=== PATIENT | female | born 1995 | race Caucasian/White ===

== ENCOUNTER 2025-03-23 20:39 | Emergency (ER) | payer SELFPAY ==
[2025-03-23 20:50] VITALS: BP 130/70; BP 160/110; PULSE 73; PULSE 81; RESP 16; TEMP 36.4; O2SAT 100; O2SAT 97; BMI 31.1
[2025-03-23 20:55] VITALS: BP 130/70; PULSE 81; RESP 16; TEMP 36.4; O2SAT 100
--- OUTSIDE RECORDS SUMMARY | 2025-03-23 21:10 | XMS_ITS | Clinical Summary ---
Author Organization [facility] Address [address] [place] [id number] Care Team Providers [employer] Supervisor Name Role Phone Pcp, No Primary Care Provider Unavailabl e Allergies No known active allergies Medications albuterol (Ventolin HFA) 108 (90 Base) MCG/ACT inhaler Inhale 2 puffs every 6 (six) hours if needed for wheezing. 18 g 02/01/2023 Active Social History Tobacco Use Types Packs/Day Years Used Date Smoking Tobacco: Never Assessed [facility] Housing Answer Date Recorded Living Situation Not on file 06/08/2023 Housing Problems Not on file 06/08/2023 [facility] Safety Answer Date Recorded Threatened Not on file 06/08/2023 Insulted Not on file 06/08/2023 Physically Hurt Not on file 06/08/2023 Scream Not on file 06/08/2023 Comments Unknown Sex and Gender Information Value Date Recorded Sex Assigned at Not on file Legal Sex Female 1:04 AM EDT Gender Identity Not on file Sexual Orientation Not on file Last Filed Vital Signs Vital Sign Reading Time Taken Comments Blood Pressure 103/68 02/01/2023 5:00 AM EDT Pulse 112 02/01/2023 5:00 AM EDT Temperature 36.8 ??C (98.3 ??F) 02/01/2023 1:00 AM ED T Respiratory Rate 25 02/01/2023 5:00 AM EDT Oxygen Saturation 100% 02/01/2023 5:00 AM EDT Inhaled Oxygen Concentration - - Weight 90.7 kg (200 lb) 02/01/2023 1:00 AM EDT Height 162.6 cm (5' 4 ) 02/01/2023 1:00 AM EDT Body Mass Index 34.33 02/01/2023 1:00 AM EDT Plan of Treatment Health Maintenance Due Date Last Done Comments Diabetes: Hemoglobin A1C 1996 HIV Screening 1996 Lipid Panel 1996 MMR Vaccines (1 of 1 - Stand jose series) 01/13/1997 Annual Physical 07/16/1998 Diabetes: Foot Exam 01/13/2006 Diabetes: Retinopathy Screening 01/13/2006 Varicella Vaccines (1 of 2 - 13+ 2-dose series) 01/13/2009 DTaP/Tdap/Td Vaccines (1 - Tdap) 01/13/2015 Diabetes: Urine Protein Screening 01/13/2015 Hepatitis B Vaccines (1 of 3 - 19+ 3-dose series) 01/13/2015 Pneumococcal: Pediatrics (0 to 5 Yrs) and At-Risk Patients (6 to 49 Years) (1 of 2 - PCV) 01/13/2015 Pap Smear 01/13/2017 COVID-19 Vaccine (1 - 2023-2 5 season) 2024 Influenza Vaccine (Season Ended) 2025 Zoster Vaccines (1 of 2) 01/13/2046 Respiratory Syncytial Virus (RSV) 60 years and older and/or patients (1 - 1-dose 75+ series) 01/13/2071 HPV Vaccines Aged Out No longer eligi ble based on patient's age to complete this topic Hepatitis A Vaccines Aged Out No long er eligible based on patient's age to complete this topic Meningococcal B Vaccine Aged Out No l onger eligible based on patient's age to complete this topic Meningococcal Vaccine Aged Out No chrissy abdirahman eligible based on patient's age to complete this topic Respiratory Syncytial Virus (RSV) <20 months Aged Out No longer eligible b ased on patient's age to complete this topic Insurance [facility] MEDICAID [employer] Supervisor Relationship Specialty Start Date End Date Pcp, No PCP - General 02/01/23
--- NOTE | 2025-03-23 21:27 | ECG_ITS ---
Test Reason : NEAR SYNCOPE Blood Pressure : */* mmHG Vent. Rate : 78 BPM Atrial Rate : 78 BPM P-R Int : 162 ms QRS Dur : 84 ms QT Int : 382 ms P-R-T Axes : 58 50 27 degrees QTcB Int : 435 ms Normal sinus rhythm Normal ECG No previous ECGs available Referred By: Franklin Holland Electronically Signed By: MARANDA BYRD
[2025-03-23] MEDS: 0.9 % Sodium Chloride 1,000 ML 999 ML IV (21:40)
[2025-03-23] MEDS: ondansetron HCL 4 MG/2 ML VIAL IVPUSH (21:43)
[2025-03-23 21:44] LABS: MANUAL DIFF FLAG NO
[2025-03-23 21:45] LABS: Basophils Absolute Auto 0.1 X10*3/uL (0.0-0.2); Basophils Percent Auto 0.5 % (0-2); Eosinophils Absolute Auto 0.1 X10*3/uL (0.0-0.4); Eosinophils Percent Auto 0.4 % (0-4); Hematocrit 37.6 % (37.0-47.0); Hemoglobin 11.9 g/dl (12.0-16.0); Imm Gran Abs Auto 0.06 X10*3/uL (0.00-0.03); Imm Gran Pct Auto 0.5 % (0.0-0.4); Lymphocytes Absolute Auto 2.3 X10*3/uL (1.2-4.9); Lymphocytes Percent Auto 17.4 % (20-40); Mean Corpuscular HGB Conc 31.6 g/dl (31.0-35.0); Mean Corpuscular Hemoglobin 25.9 pg (27.0-33.0); Mean Corpuscular Volume 81.9 fL (80.0-98.0); Mean Platelet Volume 9.6 fL (9.4-12.3); Monocytes Absolute Auto 0.5 X10*3/uL (0.1-1.2); Monocytes Percent Auto 4.1 % (2-11); Neutrophils Absolute Auto 10.1 x10*3/uL (2.0-8.3); Neutrophils Percent Auto 77.1 % (45-73); Platelet Count 323 X10*3/uL (160-400); Red Blood Count 4.59 X10*6/uL (4.20-5.50); Red Cell Distribution Width 14.1 % (11.0-16.0); White Blood Count 13.1 X10*3/uL (4.8-10.8)
--- NOTE | 2025-03-23 21:49 | ED.GENADULT ---
HPI - General Adult General Chief complaint: ETOH/Substance Use Stated complaint: drank alch, now dizzy vomitting, dehydrated Time Seen by Provider: 03/23/25 21:19 Source: patient and RN notes reviewed Mode of arrival: ambulatory Limitations: no limitations History of Present Illness ED Provider: Amalia HPI narrative: 30-year-old female presents for evaluation of vomiting. Patient reports drinking heavily today which is unusual for her. She was celebrating with her who was performing at a club. She had 3 or 4 alcoholic beverages within a few hours and she normally does not drink at all. She reports feeling weak and vomiting. She reports nearly passing out in the bathroom. Per her who is bedside, another individual caught her in the shower, so she did not fall to the ground She denies any pain Related Data Allergies Allergy/AdvReac Type Severity Reaction Status Date / Time No Known Allergies Allergy Verified 03/23/25 20:53 Review of Systems Constitutional: Constitutional: Denies body ache(s), Denies chills, Denies headache(s) and Denies increased appetite Eyes: Eyes: Denies blurry vision ENT: Denies vertigo, Denies dizziness and Denies headache(s) Cardiovascular: Cardiovascular: Denies chest pain and Denies dyspnea Comments: Reports near-syncope Respiratory: Respiratory: Denies cough and Denies dyspnea Gastrointestinal: Gastrointestinal: Denies abdominal pain, Reports nausea and Reports vomiting Musculoskeletal: Musculoskeletal: Denies back pain Integumentary/Breasts: Skin/Breast: Denies rash Neurologic: Denies vertigo, Denies dizziness and Denies headache(s) Psychiatric: Psychiatric: Denies anxiety PMFSH Social History Social History Smoked in Last 30 Days: No Use of substances other than those prescribed or required for medical reasons: No Advance Directives: No Advance Directives Information Provided: No Physical Exam ED Vital Signs: Vital Signs - 24 hr 03/24/25 00:24 03/24/25 01:42 03/24/25 01:59 Temperature 98.0 F 98.4 F 98.4 F Pulse Rate 79 81 81 Respiratory Rate 12 14 14 Blood Pressure 126/72 111/75 111/75 Pulse Oximetry 100 98 98 Oxygen Delivery Method Room Air Room Air Room Air BMI result Body Mass Index 31.1 Const General: healthy appearing, comfortable, no acute distress, alert and awake Nutritional Appearance: well nourished Orientation/consciousness: patient oriented x3 HENMT Head: Yes normocephalic and Yes atraumatic Eyes Eyelids: Yes eyelids normal Conjunctivae: conjunctivae normal Sclerae: sclerae normal Corneas: corneas normal Pupils: Equal, round and reactive pupils present EOM: EOMs intact bilaterally Neck Neck: Yes full ROM Resp Effort & Inspection: normal respiratory effort, able to speak in complete sentences and not labored Skin General skin exam: elasticity normal Neuro General: patient oriented x3 Cranial nerves: Yes Equal, round and reactive pupils present and Yes Bilaterally intact EOM present Cognition (Neuro): normal cognition Extrem Other: Moving all extremities well without any obvious deformities Course Reevaluation(s) Reevaluation #1: Patient's workup largely unremarkable, she is feeling much better after resting with IV fluids. She is able to ambulate without feeling dizzy, she is not nauseous or vomiting. She has stable for discharge at this time. Time: 01:37 Medications Administered Discontinued Medications Generic Name Dose Route Start Last Admin Trade Name Freq PRN Reason Stop Dose Admin Sodium Chloride 1,000 mls @ 999 mls/hr 03/23/25 21:30 03/24/25 00:25 Ns IV 03/23/25 22:30 Infused .Q1H1M TANIA Infusion Ondansetron HCl 4 mg 03/23/25 21:27 03/23/25 21:43 Ondansetron Hcl 4 Mg/2 Ml Vial IVPUSH 03/23/25 21:28 4 mg ONCE ONE Administration Medical Decision Making Medical Decision Making [facility] Narrative: 30-year-old female presents for evaluation your syncopal episode. She was drinking alcohol heavily today which is unusual for her. She is nauseous and vomiting. She is somewhat diaphoretic. Plan for EKG, labs. We will treat with IV fluids and Zofran and follow closely. Differential Diagnosis Differential Diagnoses: The differential diagnosis associated with the presentation includes Alcohol abuse Acute alcohol intoxication Syncope Dehydration Hypoglycemia Lab Data [facility] Lab Attestation statement: I reviewed the patient's lab results. 03/23/25 21:39 03/23/25 21:39 Labs: Lab Results 03/23/25 Range/Units 21:39 WBC 13.1 H (4.8-10.8) X10*3/uL RBC 4.59 (4.20-5.50) X10*6/uL Hgb 11.9 L (12.0-16.0) g/dl Hct 37.6 (37.0-47.0) % MCV 81.9 (80.0-98.0) fL MCH 25.9 L (27.0-33.0) pg MCHC 31.6 (31.0-35.0) g/dl RDW 14.1 (11.0-16.0) % Plt Count 323 (160-400) X10*3/uL MPV 9.6 (9.4-12.3) fL Immature Gran % (Auto) 0.5 H (0.0-0.4) % Neut % (Auto) 77.1 H (45-73) % Lymph % (Auto) 17.4 L (20-40) % Wilkinson % (Auto) 4.1 (2-11) % Eos % (Auto) 0.4 (0-4) % Baso % (Auto) 0.5 (0-2) % Lymph # (Auto) 2.3 (1.2-4.9) X10*3/uL Wilkinson # (Auto) 0.5 (0.1-1.2) X10*3/uL Eos # (Auto) 0.1 (0.0-0.4) X10*3/uL Baso # (Auto) 0.1 (0.0-0.2) X10*3/uL Abs Immat Gran (auto) 0.06 H (0.00-0.03) X10*3/uL Absolute Neuts (auto) 10.1 H (2.0-8.3) x10*3/uL Absolute Nucleated RBC 0.000 (0.0-0.012) X10*3/uL Nucleated RBC % (auto) 0.0 (0.0-0.2) /100WBC Sodium 143 (135-145) mmol/L Potassium 3.4 (3.3-5.1) mmol/L Chloride 110 H (96-108) mmol/L Carbon Dioxide 18 L (22-29) mmol/L Anion Gap 18 (12-20) BUN 6 L (9-16) mg/dL Creatinine 0.73 (0.5-1.4) mg/dL Estim Creat Clear Calc 109.3 Estimated GFR > 60 Random Glucose 82 (60-115) mg/dL Calcium 9.0 (8.4-10.2) mg/dL Magnesium 2.0 (1.6-2.6) mg/dL Total Bilirubin 0.2 (0.0-1.0) mg/dL AST 29 (5-31) U/L ALT 16 (0-31) U/L Alkaline Phosphatase 78 (39-117) U/L Troponin I High Sens < 2.7 (<3.5-17.0) ng/L Total Protein 7.6 (6.5-8.0) g/dL Albumin 4.5 (3.5-5.0) g/dL Lipase 19 (8-78) U/L Beta HCG, Quant < 2 mIU/mL Ethyl Alcohol 128 mg/dL Independent Interpretation I performed an independent interpretation of an: EKG Interpretation: Normal sinus rhythm with a rate of [address] changes Discharge Plan Discharge Clinical Impression: Alcoholic intoxication Patient Disposition: Home, Self-Care Instructions: Alcohol Intoxication (ED) Additional Instructions: Avoid excessive consumption of alcohol. Hydrate well Follow-up with your primary doctor, return for new or worsening symptoms Interventions: ED Discharge Assessment Last Done: 03/24/25 01:59 Discharge Date/Time: 03/24/25 01:59 Print Language: Georgian
[2025-03-23 22:06] LABS: Alanine Aminotransferase 16 U/L (0-31); Albumin Level 4.5 g/dL (3.5-5.0); Alkaline Phosphatase 78 U/L (39-117); Anion Gap 18 (12-20); Aspartate Amino Transferase 29 U/L (5-31); Bilirubin Total 0.2 mg/dL (0.0-1.0); Blood Urea Nitrogen 6 mg/dL (9-16); Carbon Dioxide 18 mmol/L (22-29); Chloride 110 mmol/L (96-108); Creatinine Clr Calc Pharmacy 109.3; Estimated Glomerular Filt Rate > 60; Ethanol 128 mg/dL; Glucose Random 82 mg/dL (60-115); Lipase 19 U/L (8-78); Potassium 3.4 mmol/L (3.3-5.1); Sodium 143 mmol/L (135-145); Total Protein 7.6 g/dL (6.5-8.0)
[2025-03-23 22:10] LABS: HCG Quantitative < 2 mIU/mL; Troponin-I High Sensitivity < 2.7 ng/L (<3.5-17.0)
[2025-03-23 23:14] VITALS: BP 121/70; PULSE 84; RESP 10; O2SAT 100
[2025-03-24 00:24] VITALS: BP 126/72; PULSE 79; RESP 12; TEMP 36.7; O2SAT 100
[2025-03-24 01:42] VITALS: BP 111/75; PULSE 81; RESP 14; TEMP 36.9; O2SAT 98
[2025-03-24 01:59] VITALS: BP 111/75; PULSE 81; RESP 14; TEMP 36.9; O2SAT 98
== END 2025-03-24 01:59 | disposition home or self-care (01) ==
PROVIDERS: Physician Assistant; Emergency Provider Emergency Medicine
DX: F10.129 Alcohol abuse with intoxication, unspecified (principal); Y90.6 Blood alcohol level of 120-199 mg/100 ml; R11.10 Vomiting, unspecified; R55 Syncope and collapse; R53.1 Weakness
CPT/HCPCS: 36415; 80053; 80307; 83690; 83735; 84484; 84702; 85025; 93005; 96361; 96374; 99284; J2405

== ENCOUNTER → 2025-03-23 21:27 | Outpatient (BNV) | payer SELFPAY | PROVIDERS: Emergency Provider Emergency Medicine; Visit Provider Internal Medicine | DX: R55 Syncope and collapse (principal) | CPT/HCPCS: 93010 ==